=== PATIENT | female | born 1935 | race Caucasian/White ===

== ENCOUNTER → 2017-08-29 | Outpatient (CLI) | payer MEDICARE, OTHER ==
[~2017-08-29] MED LIST: ACE325 PO; AMOX-559 PO; ASPI-1471 PO; ASPI324T37 PO; ATOR10TA65 PO; ATOR20TA65 PO; CHOL10005 PO; CLO75 PO; FERR-1 PO; HYDR-2966 PO; METO50TA19 PO; OMEP-218 PO; RAMI10CA52 PO; UBID200C21 PO; VITA-200 PO; [UNRECOGNIZED DRUG - CODE] PO
[2017-08-29 20:48] LABS: PLATELET COUNT, AUTOMATED 248 K/uL (150-450)
== END ==
LOC: LAB 16:58
PROVIDERS: ATTEND Family Medicine
DX: I10 Essential (primary) hypertension (principal)
CPT/HCPCS: 36415; 82040; 82247; 82310; 82374; 82435; 82565; 82947; 84075; 84132; 84155; 84295; 84450; 84460; 84520; 85025

== ENCOUNTER → 2018-05-16 | Outpatient (CLI) | payer MEDICARE, OTHER ==
[~2018-05-16] MED LIST changes: +CA C1TAB11 PO; +FLU180SY11 IM; +MAGN250T34 PO; -RAMI10CA52 PO; +RAMI10CA9 PO
[2018-05-16 15:00] LABS: PLATELET COUNT, AUTOMATED 260 K/uL (150-450)
== END ==
LOC: LAB 14:44
PROVIDERS: ATTEND Family Medicine
DX: F03.90 Unspecified dementia, unspecified severity, without behavioral disturbance, psychotic disturbance, mood disturbance, and anxiety (principal); I10 Essential (primary) hypertension; E55.9 Vitamin D deficiency, unspecified
CPT/HCPCS: 82040; 82247; 82306; 82310; 82374; 82435; 82565; 82607; 82947; 84075; 84132; 84155; 84295; 84450; 84460; 84520; 85025

== ENCOUNTER → 2018-08-18 | Outpatient (CLI) | payer MEDICARE, OTHER ==
[~2018-08-18] MED LIST changes: +CYA1000 PO; +PNEI IJ
--- NOTE | 2018-08-18 16:46 | RADIOLOGY IMAGING REPORT ---
FACILITY: [facility] - [place] PATIENT NAME: Tara Grace : 1935 MR: [id number] V: [id number] EXAM DATE: ORDERING PHYSICIAN: ROSALIA BINGHAM TECHNOLOGIST: Location: [facility] Patient: Tara Grace : 1935 Visit/Account:[id number] Date of Sevice: 08/18/2018 DEXA Scan Clinical history: Osteoporosis screening. Comparison: 07/28/2011. LUMBAR SPINE: Bone mineral density (BMD) measured in the lumbar spine correlates with a T-score of -1.3 and a Z-sco re of 1.4 which is osteopenia as defined by the World Health Organization. The corresponding risk of fracture in the lumbar spine is increased compared with a young adult reference population. Lumbar spine bone density has decreased by 14.0% compared to previous. Note that degenerative changes may f alsely increase bone density. LEFT FEMORAL NECK: Bone mineral density (BMD) measured in the femoral neck correlates with a T-score of -1.6 and a Z-sco re of 1.1 which is osteopenia as defined by the World Health Organization. Bone mineral density (BMD) measured in the femoral neck region is 0.814 g/cm2. LEFT TOTAL HIP: Total hip bone mineral density (BMD) correlates with a T-score of -2.7 and a Z-score of 0.0 which is osteoporosis as defined by the World Health Organization. Total hip bone density has decreased by 17 .1% compared to previous. The corresponding risk of fracture in the hip is increased compared with a young adult reference [facility]u [facility]. IMPRESSION: 1. Lumbar spine: Osteopenia. Lumbar spine bone density has decreased by 14.0% compared to previous . 2. Left femoral neck: Osteopenia. 3. Left femoral neck: Bone Mineral Density is 0.814 g/cm2. 4. Left total hip: Osteoporosis. Total hip bone density has decreased by 17.1% compared to previou s. FRAX WHO Fracture Risk Assessment Tool link: <http://www.shef.ac.uk/FRAX/tool.jsp?[email or web address]> PLEASE NOTE: 1) The World Health Organization defines low BMD as follows: T-score Normal > -1 Osteopenia < -1 and > -2.5 Osteoporosis < -2.5 without fractures Established osteoporosis < -2.5 with fractures 2) In general, you may wish to consider: Diagnosis Treatment Follow-up DEXA Normal BMD Prevention 2-3 years Osteopenia Prevention/therapy 1-2 years Osteoporosis Therapy Yearly 3) Fracture risk estimated from the T-score is more accurate for vertebral fractures (often spontane ous) than for hip fractures. Report Dictated By: Ben Gomez MD at 08/18/2018 4:40 PM Report E-Signed By: Ben Gomez MD at 08/18/2018 4:42 PM WSN:[email or web address]
== END ==
LOC: RAD 02:41
PROVIDERS: ATTEND Family Medicine
DX: Z13.820 Encounter for screening for osteoporosis (principal); M85.80 Other specified disorders of bone density and structure, unspecified site; M81.0 Age-related osteoporosis without current pathological fracture
CPT/HCPCS: 77080

== ENCOUNTER → 2019-02-01 | Outpatient (CLI) | payer MEDICARE, OTHER ==
[2019-02-01 14:47] LABS: PLATELET COUNT, AUTOMATED 227 K/uL (150-450)
== END ==
LOC: LAB 14:06
PROVIDERS: ATTEND Family Medicine
DX: E53.8 Deficiency of other specified B group vitamins (principal); F03.90 Unspecified dementia, unspecified severity, without behavioral disturbance, psychotic disturbance, mood disturbance, and anxiety; I10 Essential (primary) hypertension
CPT/HCPCS: 36415; 82040; 82247; 82310; 82374; 82435; 82565; 82607; 82947; 84075; 84132; 84155; 84295; 84443; 84450; 84460; 84520; 85025